=== PATIENT | female | born 1935 | race Caucasian/White ===

== ENCOUNTER 2018-04-30 22:05 | Outpatient (REF) | payer MEDICARE, SELFPAY ==
[2018-04-30 22:38] LABS: HCT 36.2 % (36.0-46.0); HGB 11.4 g/dL (12.0-15.5); Mean Corp. HGB Concentration 31.5 g/dL (32.0-36.0); Mean Corpuscular Hemoglobin 26.8 pg (27.0-33.0); Mean Platelet Volume 10.1 fL (8.0-11.0); Platelet Count 508 x1000/uL (130-400); RBC 4.26 m/cumm (4.00-5.20); RBC Distribution Width 13.8 % (11.7-14.6); White Blood Cell Count 5.77 k/cumm (4.4-10.8)
[2018-04-30 22:50] LABS: Anion Gap 6.5 mmol/L (3-11); BUN 26 mg/dL (7-18); CO2 30.5 mmol/L (21.0-32.0); CREATININE 1.14 mg/dL (0.55-1.02); Calcium 10.2 mg/dL (8.5-10.1); Chloride 101 mmol/L (98-107); Estimated GFR 45.75 (mL/min/1.73m2); Glucose 165 mg/dL (70-100); Potassium 3.9 mmol/L (3.5-5.1); Sodium 138 mmol/L (136-145); TSH 1.86 uIU/mL (0.358-3.74)
== END 2018-04-30 22:25 ==
LOC: NCHCN 22:05
PROVIDERS: PCP Nurse Practitioner Family; Visit Provider Internal Medicine
DX: R53.83 Other fatigue (principal); I10 Essential (primary) hypertension; I67.9 Cerebrovascular disease, unspecified
CPT/HCPCS: 80048; 85027; 84443

== ENCOUNTER 2018-06-01 15:08 | Outpatient (REF) | payer MEDICARE, SELFPAY ==
[2018-06-01 20:42] LABS: HCT 36.8 % (36.0-46.0); HGB 11.8 g/dL (12.0-15.5)
[2018-06-01 21:01] LABS: Anion Gap 9.1 mmol/L (3-11); BUN 22 mg/dL (7-18); CO2 28.9 mmol/L (21.0-32.0); CREATININE 1.21 mg/dL (0.55-1.02); Chloride 103 mmol/L (98-107); Estimated GFR 42.71 (mL/min/1.73m2); Glucose 142 mg/dL (70-100); Potassium 3.8 mmol/L (3.5-5.1); Sodium 141 mmol/L (136-145)
== END 2018-06-01 15:28 ==
LOC: NCHCN 15:08
PROVIDERS: PCP Nurse Practitioner Family; Visit Provider Internal Medicine
DX: I10 Essential (primary) hypertension (principal); R53.83 Other fatigue
CPT/HCPCS: 80048; 85014; 85018

== ENCOUNTER 2019-01-22 14:52 | Outpatient (REF) | payer MEDICARE, SELFPAY ==
[2019-01-22 22:11] LABS: Hemoglobin A1C 6.3 % (4.5-6.2)
[2019-01-22 22:20] LABS: ALT 23 U/L (12-78); AST 20 U/L (15-37); Albumin 3.9 g/dL (3.4-5.0); Alkaline Phosphatase 133 U/L (46-116); Anion Gap 10.5 mmol/L (3-11); BUN 26 mg/dL (7-18); Bilirubin, Total 0.4 mg/dL (0.2-1.0); CO2 27.5 mmol/L (21.0-32.0); CREATININE 1.11 mg/dL (0.55-1.02); Calcium 10.3 mg/dL (8.5-10.1); Chloride 101 mmol/L (98-107); Estimated GFR 47.06 (mL/min/1.73m2); Glucose 121 mg/dL (70-100); Lipase 236 U/L (73-393); Sodium 139 mmol/L (136-145); Total Protein 7.2 g/dL (6.4-8.2)
== END 2019-01-22 15:12 ==
LOC: NCHCN 14:52
PROVIDERS: PCP Nurse Practitioner Family; Visit Provider Nurse Practitioner Family
DX: E11.9 Type 2 diabetes mellitus without complications (principal); I10 Essential (primary) hypertension; R10.9 Unspecified abdominal pain
CPT/HCPCS: 80053; 83690; 83036

== ENCOUNTER 2019-02-25 10:10 | Outpatient (REF) | payer MEDICARE, SELFPAY ==
[2019-02-25 21:07] LABS: ALT 21 U/L (12-78); AST 16 U/L (15-37); Albumin 3.8 g/dL (3.4-5.0); Alkaline Phosphatase 134 U/L (46-116); Anion Gap 11.5 mmol/L (3-11); BUN 27 mg/dL (7-18); Bilirubin, Total 0.5 mg/dL (0.2-1.0); CO2 27.5 mmol/L (21.0-32.0); CREATININE 1.13 mg/dL (0.55-1.02); Calcium 10.1 mg/dL (8.5-10.1); Chloride 106 mmol/L (98-107); Glucose 100 mg/dL (70-100); Potassium 4.4 mmol/L (3.5-5.1); Sodium 145 mmol/L (136-145); Total Protein 6.9 g/dL (6.4-8.2)
== END 2019-02-25 10:30 ==
LOC: NCHCN 10:10
PROVIDERS: Nurse Practitioner Family; PCP Nurse Practitioner Family; Visit Provider Otolaryngology Otology & Neurotology
DX: E11.9 Type 2 diabetes mellitus without complications (principal); I10 Essential (primary) hypertension; N28.9 Disorder of kidney and ureter, unspecified
CPT/HCPCS: 80053

== ENCOUNTER 2019-02-26 11:51 | Outpatient (REF) | payer MEDICARE, SELFPAY ==
--- NOTE | 2019-02-26 12:00 | SKI_PTH ---
PATIENT: Amira Faust LOC: [facility] U#:[id number] AGE/SX: 83/F ROOM: RE02/26/[address]: Millie Montero : 1935 BED: DIS: 02/26/2019 SPEC #: [id number] RECD: 02/27/19 12:29 STATUS: ALEXX REAbebe #: [id number] MIKE: 02/26/19 12:[address]: Millie Montilla DEPT: Surgical Specimen RECD BY: Kiana Hairston ENTERED: 02/27/19 12:33 SP TYPE: ELIER PENA DR: Andie Kraft Tissues: 1 - SKIN BIOPSY(SHAVE/PUNCH) Procedures: SKIN LEVEL 4 Comments: [id number]
[2019-02-26 22:58] LABS: COMMENT (LAB VIEW ONLY) 99.33 mg/dL
== END 2019-02-26 12:11 ==
LOC: NCHCN 11:51
PROVIDERS: PCP Nurse Practitioner Family; Visit Provider Nurse Practitioner Family
DX: E11.9 Type 2 diabetes mellitus without complications (principal); I10 Essential (primary) hypertension; L82.1 Other seborrheic keratosis
CPT/HCPCS: 82043; 82570; 88305

== ENCOUNTER 2021-01-08 18:47 | Outpatient (REF) | payer MEDICARE, SELFPAY ==
[2021-01-08 20:55] LABS: Abs Immature Grans 0.01 10^3/uL (0.0-0.06); Absolute Basophil Count 0.11 10^3/uL (0.0-0.2); Absolute Eosinophil Count 0.19 10^3/uL (0.0-0.7); Absolute Lymphocyte Count 1.34 10^3/uL (1.2-3.4); Absolute Neutrophil Count 4.48 10^3/uL (1.2-6.7); Basophils % 1.5; Eosinophils % 2.7; HCT 31.8 % (36.0-46.0); HGB 10.4 g/dL (11.2-15.7); Immature Grans % 0.1; Lymphocytes % 18.8; MCH 29.1 pg (27.0-33.0); MCHC 32.7 % (32.0-36.0); MCV 89.1 fL (80-95); MPV 10.6 fL (8.0-11.0); Neutrophils % 62.9; Nucleated RBC 0 %; Platelet Count 314 10^3/uL (130-400); RBC 3.57 10^6/uL (3.93-5.22); RDW 13.4 % (11.7-14.6); RDW-SD 43.8 fL; WBC 7.13 10^3/uL (4.4-10.8)
[2021-01-08 21:34] LABS: ALT 19 U/L (14-59); AST 17 U/L (15-37); Albumin 3.7 g/dL (3.4-5.0); Alkaline Phosphatase 123 U/L (46-116); Anion Gap 4.9 mmol/L (3-11); BUN 39 mg/dL (7-18); Bilirubin, Total 0.3 mg/dL (0.2-1.0); CO2 31.1 mmol/L (21.0-32.0); CREATININE 1.5 mg/dL (0.55-1.02); Calcium 10.3 mg/dL (8.5-10.1); Chloride 105 mmol/L (98-107); Estimated GFR 33.08 (mL/min/1.73m2); Glucose 119 mg/dL (74-106); Magnesium 1.7 mg/dL (1.8-2.4); Potassium 4.2 mmol/L (3.5-5.1); Sodium 141 mmol/L (136-145); TSH 1.78 uIU/mL (0.36-3.74); Total Protein 6.5 g/dL (6.4-8.2); Vitamin B12 657 pg/mL (193-986)
[2021-01-08 22:03] LABS: Hemoglobin A1C 6.1 % (<5.7)
== END 2021-01-08 18:48 | disposition home or self-care (01) ==
LOC: NCHCN 18:47
PROVIDERS: PCP Nurse Practitioner Family; Visit Provider Registered Nurse
DX: R53.83 Other fatigue (principal); I10 Essential (primary) hypertension; E11.9 Type 2 diabetes mellitus without complications; Z86.39 Personal history of other endocrine, nutritional and metabolic disease
CPT/HCPCS: 80053; 82607; 83036; 83735; 84443; 85025

== ENCOUNTER 2021-01-13 15:18 | Outpatient (REF) | payer MEDICARE, SELFPAY ==
[2021-01-13 14:05] LABS: Iron 85 ug/dL (50-170); Total Iron Binding Capacity 282 ug/dL (250-450); Transferrin Sat 30 % (15-50)
[2021-01-13 14:19] LABS: Anion Gap 9.4 mmol/L (3-11); BUN 25 mg/dL (7-18); CO2 27.6 mmol/L (21.0-32.0); CREATININE 1.4 mg/dL (0.55-1.02); Calcium 10.7 mg/dL (8.5-10.1); Chloride 104 mmol/L (98-107); Estimated GFR 35.82 (mL/min/1.73m2); Ferritin 73 ng/mL (8-252); Glucose 98 mg/dL (74-106); Potassium 4.2 mmol/L (3.5-5.1); Sodium 141 mmol/L (136-145)
== END 2021-01-13 15:19 | disposition home or self-care (01) ==
LOC: NCHCN 15:18
PROVIDERS: PCP Nurse Practitioner Family; Visit Provider Registered Nurse
DX: D64.9 Anemia, unspecified (principal); I10 Essential (primary) hypertension; R53.83 Other fatigue; N18.30 Chronic kidney disease, stage 3 unspecified
CPT/HCPCS: 80048; 82728; 83540; 83550

== ENCOUNTER 2021-05-10 11:44 | Outpatient (REF) | payer MEDICARE, SELFPAY ==
[2021-05-10 21:43] LABS: HCT 35.8 % (36.0-46.0); HGB 11.4 g/dL (11.2-15.7); MCH 28.4 pg (27.0-33.0); MCHC 31.8 % (32.0-36.0); MCV 89.3 fL (80-95); MPV 10.2 fL (8.0-11.0); Platelet Count 349 10^3/uL (130-400); RBC 4.01 10^6/uL (3.93-5.22); RDW 13.4 % (11.7-14.6); RDW-SD 44.1 fL
[2021-05-10 22:04] LABS: ALT 16 U/L (14-59); AST 14 U/L (15-37); Albumin 3.7 g/dL (3.4-5.0); Alkaline Phosphatase 106 U/L (46-116); BUN 30 mg/dL (7-18); Bilirubin, Total 0.3 mg/dL (0.2-1.0); CREATININE 1.5 mg/dL (0.55-1.02); Chloride 104 mmol/L (98-107); Estimated GFR 33.08 (mL/min/1.73m2); Glucose 119 mg/dL (74-106); Sodium 140 mmol/L (136-145); Total Protein 6.9 g/dL (6.4-8.2)
[2021-05-12 12:11] LABS: Parathyroid Hormone,Intact 59 pg/mL (19-88)
== END 2021-05-10 11:45 | disposition home or self-care (01) ==
LOC: NCHCN 11:44
PROVIDERS: PCP Nurse Practitioner Family; Visit Provider Nurse Practitioner Family
DX: I10 Essential (primary) hypertension (principal); E11.9 Type 2 diabetes mellitus without complications; R42 Dizziness and giddiness
CPT/HCPCS: 80053; 85027; 83036; 83970

== ENCOUNTER 2021-05-25 14:51 | Outpatient (REF) | payer MEDICARE, SELFPAY ==
[2021-05-25 15:03] LABS: Anion Gap 4.6 mmol/L (3-11); BUN 25 mg/dL (7-18); CO2 30.4 mmol/L (21.0-32.0); CREATININE 1.3 mg/dL (0.55-1.02); Calcium 11.2 mg/dL (8.5-10.1); Chloride 105 mmol/L (98-107); Estimated GFR 39.02 (mL/min/1.73m2); Glucose 103 mg/dL (74-106); Sodium 140 mmol/L (136-145)
[2021-05-25 16:46] LABS: PROTEIN 29.1 mg/dL
[2021-05-25 17:08] LABS: COMMENT (LAB VIEW ONLY) 85.94 mg/dL; Prot/Crea Ur Ratio 0.33
[2021-05-27 04:53] LABS: Vitamin D 25 Total 99.4 ng/mL (30-100)
== END 2021-05-25 14:52 | disposition home or self-care (01) ==
LOC: NCHCN 14:51
PROVIDERS: PCP Nurse Practitioner Family; Visit Provider Nurse Practitioner Family
DX: D63.1 Anemia in chronic kidney disease (principal)
CPT/HCPCS: 80048; 82306; 82565; 84156

== ENCOUNTER 2021-07-27 13:50 | Outpatient (REF) | payer MEDICARE, SELFPAY ==
[2021-07-27 22:01] LABS: Hemoglobin A1C 5.6 % (<5.7)
[2021-07-27 22:02] LABS: Anion Gap 7.5 mmol/L (3-11); BUN 24 mg/dL (7-18); CO2 29.5 mmol/L (21.0-32.0); CREATININE 1.4 mg/dL (0.55-1.02); Calcium 11.2 mg/dL (8.5-10.1); Chloride 103 mmol/L (98-107); Estimated GFR 35.74 (mL/min/1.73m2); Glucose 111 mg/dL (74-106); Sodium 140 mmol/L (136-145)
== END 2021-07-27 13:51 | disposition home or self-care (01) ==
LOC: NCHCN 13:50
PROVIDERS: PCP Nurse Practitioner Family; Visit Provider Nurse Practitioner Family
DX: E11.9 Type 2 diabetes mellitus without complications (principal); I10 Essential (primary) hypertension; N18.30 Chronic kidney disease, stage 3 unspecified; E83.52 Hypercalcemia; I70.1 Atherosclerosis of renal artery
CPT/HCPCS: 80048; 83036

== ENCOUNTER 2022-01-17 11:02 | Outpatient (REF) | payer MEDICARE, SELFPAY ==
[2022-01-17 14:54] LABS: Hemoglobin A1C 5.9 % (<5.7)
[2022-01-17 15:04] LABS: Anion Gap 8.8 mmol/L (3-11); BUN 29 mg/dL (7-18); CO2 27.2 mmol/L (21.0-32.0); CREATININE 1.3 mg/dL (0.55-1.02); Calcium 10.8 mg/dL (8.5-10.1); Chloride 105 mmol/L (98-107); Estimated GFR 38.93 (mL/min/1.73m2); Glucose 108 mg/dL (74-106); Potassium 4.7 mmol/L (3.5-5.1); Sodium 141 mmol/L (136-145)
== END 2022-01-17 11:03 | disposition home or self-care (01) ==
LOC: NCHCN 11:02
PROVIDERS: PCP Nurse Practitioner Family; Visit Provider Nurse Practitioner Family
DX: E11.9 Type 2 diabetes mellitus without complications (principal); I10 Essential (primary) hypertension
CPT/HCPCS: 80048; 83036

== ENCOUNTER 2022-07-19 18:59 | Outpatient (REF) | payer MEDICARE, SELFPAY ==
[2022-07-19 17:15] LABS: Anion Gap 4.3 mmol/L (3-11); BUN 28 mg/dL (7-18); CO2 30.7 mmol/L (21.0-32.0); CREATININE 1.6 mg/dL (0.55-1.02); Calcium 11.1 mg/dL (8.5-10.1); Chloride 106 mmol/L (98-107); Estimated GFR 31.21 (mL/min/1.73m2); Glucose 140 mg/dL (74-106); Potassium 4.6 mmol/L (3.5-5.1); Sodium 141 mmol/L (136-145)
[2022-07-19 17:27] LABS: Hemoglobin A1C 5.7 % (<5.7)
== END 2022-07-19 19:00 | disposition home or self-care (01) ==
LOC: NCHCN 18:59
PROVIDERS: PCP Nurse Practitioner Family; Visit Provider Nurse Practitioner Family
DX: E11.9 Type 2 diabetes mellitus without complications (principal); I10 Essential (primary) hypertension
CPT/HCPCS: 80048; 83036

== ENCOUNTER 2023-04-07 10:09 | Outpatient (REF) | payer MEDICARE, SELFPAY ==
[2023-04-07 15:35] LABS: HCT 36.4 % (36.0-46.0); HGB 11.7 g/dL (11.2-15.7); MCH 28.3 pg (27.0-33.0); MCHC 32.1 % (32.0-36.0); MCV 88 fL (80-95); MPV 10.6 fL (8.0-11.0); Platelet Count 319 10^3/uL (130-400); RBC 4.14 10^6/uL (3.93-5.22); RDW 14.1 % (11.7-14.6); RDW-SD 45.7 fL; WBC 5.62 10^3/uL (4.4-10.8)
[2023-04-07 15:47] LABS: Anion Gap 6.7 mmol/L (3-11); BUN 31 mg/dL (7-18); CO2 28.3 mmol/L (21.0-32.0); CREATININE 1.7 mg/dL (0.55-1.02); Calcium 11.1 mg/dL (8.5-10.1); Chloride 104 mmol/L (98-107); Estimated GFR 29.02 (mL/min/1.73m2); Glucose 136 mg/dL (74-106); Potassium 4.7 mmol/L (3.5-5.1); Sodium 139 mmol/L (136-145)
[2023-04-07 16:35] LABS: Hemoglobin A1C 5.7 % (<5.7)
== END 2023-04-07 10:10 | disposition home or self-care (01) ==
LOC: NCHCN 10:09
PROVIDERS: PCP Nurse Practitioner Family; Visit Provider Nurse Practitioner Family
DX: D63.1 Anemia in chronic kidney disease (principal); E11.9 Type 2 diabetes mellitus without complications; I10 Essential (primary) hypertension; N18.30 Chronic kidney disease, stage 3 unspecified
CPT/HCPCS: 80048; 85027; 83036

== ENCOUNTER 2023-07-27 22:17 | Outpatient (REF) | payer MEDICARE, SELFPAY ==
[2023-07-27 22:42] LABS: COMMENT (LAB VIEW ONLY) 227.38 mg/dL
[2023-07-27 22:43] LABS: Microalb ug/mg Crea 59.2 ug/mg Cr
== END 2023-07-27 22:18 | disposition home or self-care (01) ==
LOC: NCHCN 22:17
PROVIDERS: PCP Nurse Practitioner Family; Visit Provider Family Medicine
DX: E11.9 Type 2 diabetes mellitus without complications (principal)
CPT/HCPCS: 82043; 82570

== ENCOUNTER 2023-10-05 15:19 | Outpatient (REF) | payer MEDICARE, SELFPAY ==
[2023-10-05 15:07] LABS: Anion Gap 8.6 mmol/L (3-11); BUN 28 mg/dL (7-18); CO2 28.4 mmol/L (21.0-32.0); CREATININE 1.6 mg/dL (0.55-1.02); Chloride 105 mmol/L (98-107); Estimated GFR 31.02 (mL/min/1.73m2); Glucose 127 mg/dL (74-106); Potassium 4.7 mmol/L (3.5-5.1); Sodium 142 mmol/L (136-145)
[2023-10-05 15:26] LABS: Calcium 11.6 mg/dL (8.5-10.1)
== END 2023-10-05 15:20 | disposition home or self-care (01) ==
LOC: NCHCN 15:19
PROVIDERS: PCP Nurse Practitioner Family; Referring Provider Nurse Practitioner Family; Visit Provider Nurse Practitioner Family
DX: N18.30 Chronic kidney disease, stage 3 unspecified (principal)
CPT/HCPCS: 80048

== ENCOUNTER 2023-10-10 15:23 | Outpatient (REF) | payer MEDICARE, SELFPAY ==
[2023-10-10 15:43] LABS: Abs Immature Grans 0.01 10^3/uL (0.0-0.06); Absolute Basophil Count 0.08 10^3/uL (0.0-0.2); Absolute Eosinophil Count 0.14 10^3/uL (0.0-0.7); Absolute Lymphocyte Count 1.28 10^3/uL (1.2-3.4); Absolute Monocyte Count 0.76 10^3/uL (0.1-0.8); Absolute Neutrophil Count 3.57 10^3/uL (1.2-6.7); Basophils % 1.4; Eosinophils % 2.4; HCT 37.6 % (36.0-46.0); HGB 12.3 g/dL (11.2-15.7); Immature Grans % 0.2; Lymphocytes % 21.9; MCH 28.6 pg (27.0-33.0); MCHC 32.7 % (32.0-36.0); MCV 87 fL (80-95); Neutrophils % 61.1; Platelet Count 307 10^3/uL (130-400); RDW 14.2 % (11.7-14.6); RDW-SD 45.1 fL; WBC 5.84 10^3/uL (4.4-10.8)
[2023-10-10 16:10] LABS: ALT 16 U/L (14-59); AST 18 U/L (15-37); Alkaline Phosphatase 131 U/L (46-116); Bilirubin, Direct 0.1 mg/dL (0.0-0.2); Bilirubin, Total 0.4 mg/dL (0.2-1.0); PHOSPHORUS 2.7 mg/dL (2.6-4.7); TSH 1.83 uIU/Ml (0.36-3.74); Total Protein 7.3 g/dL (6.4-8.2)
[2023-10-10 17:07] LABS: Hemoglobin A1C 5.7 % (<5.7)
[2023-10-10 17:23] LABS: Vitamin D 25 Total 76.8 ng/mL (30-100)
[2023-10-10 22:25] LABS: Parathyroid Hormone,Intact 115 pg/mL (19-88)
[2023-10-12 12:07] LABS: Albumin g/dL 4.1 g/dL (3.6-5.2); Comment (See Note); Total Protein 6.8 g/dL (6.3-8.2)
[2023-10-12 13:32] LABS: Immunotyping, Serum (See Note)
== END 2023-10-10 15:24 | disposition home or self-care (01) ==
LOC: NCHCN 15:23
PROVIDERS: PCP Nurse Practitioner Family; Visit Provider Nurse Practitioner Family
DX: E83.52 Hypercalcemia (principal); E11.9 Type 2 diabetes mellitus without complications
CPT/HCPCS: 80076; 82306; 83036; 83970; 84100; 84165; 84443; 85025; 86320

== ENCOUNTER 2024-08-30 22:29 | Outpatient (REF) | payer MEDICARE, SELFPAY ==
[2024-08-30 14:12] LABS: HCT 40.2 % (36.0-46.0); HGB 12.5 g/dL (11.2-15.7); MCH 27.7 pg (27.0-33.0); MCHC 31.1 % (32.0-36.0); MCV 89 fL (80-95); MPV 10.3 fL (8.0-11.0); Platelet Count 328 10^3/uL (130-400); RBC 4.52 10^6/uL (3.93-5.22); RDW 14.9 % (11.7-14.6); RDW-SD 49.1 fL; WBC 9.24 10^3/uL (4.4-10.8)
[2024-08-30 14:46] LABS: Hemoglobin A1C 5.8 % (<5.7)
[2024-08-30 14:54] LABS: ALT 12 U/L (14-59); AST 21 U/L (15-37); Albumin 3.7 g/dL (3.4-5.0); Alkaline Phosphatase 222 U/L (46-116); Anion Gap 7.6 mmol/L (3-11); BUN 22 mg/dL (7-18); Bilirubin, Total 0.42 mg/dL (0.2-1.0); CO2 26.4 mmol/L (21.0-32.0); CREATININE 1.5 mg/dL (0.55-1.02); Calcium 9.8 mg/dL (8.5-10.1); Chloride 108 mmol/L (98-107); Estimated GFR 33.31 (mL/min/1.73m2); Glucose 124 mg/dL (74-106); Potassium 5.1 mmol/L (3.5-5.1); Sodium 142 mmol/L (136-145); Total Protein 7.3 g/dL (6.4-8.2)
[2024-08-30 14:57] LABS: Vitamin B12 > 2000 pg/mL (193-986)
== END 2024-08-30 22:30 | disposition home or self-care (01) ==
LOC: NCHCN 22:29
PROVIDERS: PCP Nurse Practitioner Family; Visit Provider Nurse Practitioner Family
DX: E83.52 Hypercalcemia (principal); Z13.0 Encounter for screening for diseases of the blood and blood-forming organs and certain disorders involving the immune mechanism; R41.3 Other amnesia; E11.9 Type 2 diabetes mellitus without complications
CPT/HCPCS: 80053; 85027; 82607; 83036

== ENCOUNTER 2025-03-10 13:08 | Outpatient (REF) | payer MEDICARE, SELFPAY ==
[2025-03-10 16:15] LABS: HCT 38.9 % (36.0-46.0); HGB 12.3 g/dL (11.2-15.7); MCH 28.6 pg (27.0-33.0); MCHC 31.6 % (32.0-36.0); MCV 91 fL (80-95); MPV 10.3 fL (8.0-11.0); Platelet Count 320 10^3/uL (130-400); RBC 4.30 10^6/uL (3.93-5.22); RDW 14.4 % (11.7-14.6); RDW-SD 47.4 fL; WBC 6.00 10^3/uL (4.4-10.8)
[2025-03-10 16:43] LABS: Anion Gap 7.5 mmol/L (3-11); BUN 22 mg/dL (7-18); CO2 26.5 mmol/L (21.0-32.0); Calcium 10.0 mg/dL (8.5-10.1); Chloride 105 mmol/L (98-107); Estimated GFR 33.31 (mL/min/1.73m2); Glucose 126 mg/dL (74-106); Potassium 5.2 mmol/L (3.5-5.1); Sodium 139 mmol/L (136-145)
[2025-03-10 16:57] LABS: Hemoglobin A1C 5.6 % (<5.7)
== END 2025-03-10 13:09 | disposition home or self-care (01) ==
LOC: NCHCN 13:08
PROVIDERS: PCP Nurse Practitioner Family; Visit Provider Nurse Practitioner Family
DX: E11.9 Type 2 diabetes mellitus without complications (principal); N18.30 Chronic kidney disease, stage 3 unspecified
CPT/HCPCS: 80048; 85027; 83036

== ENCOUNTER 2025-04-21 16:45 | Outpatient (REF) | payer MEDICARE, SELFPAY ==
[2025-04-21 22:17] LABS: Anion Gap 8.5 mmol/L (3-11); BUN 29 mg/dL (7-18); CO2 26.5 mmol/L (21.0-32.0); Calcium 9.8 mg/dL (8.5-10.1); Chloride 104 mmol/L (98-107); Estimated GFR 30.83 (mL/min/1.73m2); Glucose 103 mg/dL (74-106); Potassium 5.0 mmol/L (3.5-5.1); Sodium 139 mmol/L (136-145); Vitamin D 25 Total 40 ng/mL (30-100)
== END 2025-04-21 16:46 | disposition home or self-care (01) ==
LOC: LBN 16:45
PROVIDERS: PCP Nurse Practitioner Family; Visit Provider Student in an Organized Health Care Education/Training Program
DX: M81.0 Age-related osteoporosis without current pathological fracture (principal)
CPT/HCPCS: 80048; 82306